=== PATIENT | female | born 1945 | race Caucasian/White ===

== ENCOUNTER 2017-11-03 18:59 | Inpatient (IN) | payer MEDICARE ==
[~2017-11-03] VITALS: Ht 157.5 cm; Wt 58.5 kg
[~2017-11-03 18:59] MED LIST: ASPIR 8181 MG PO; CALCIUM + VITA1 EACH PO; DUONEB 2.5-0.5 M3 ML INH; FERROUS SULFAT325 MG PO; HYDROCHLOROTH12.5 M1 PO; HYDROCHLOROTHIA25 M2 PO; LEVALBUTER1.25 MG/0. INH; LEVAQUIN 500 M500 M2 PO; LEVOTHYROXIN0.088 MG PO; LIPITOR10 MG PO; MAXZIDE-25 MG1 EACH PO; NEXIUM40 MG PO; NORVASC2.5 MG PO; PREDNISONE 10 M10 MG PO; SEREVENT DISKU50 MCG IH; SEREVENT DISKU50 MCG INH; VITAMIN B-12500 MCG PO; XANAX 0.25 MG0.25 MG PO; XARELTO20 MG PO; ZANTAC 150MG T150 MG PO
[2017-11-03 19:05] VITALS: BP 141/63
[2017-11-03 19:46] LABS: ABSOLUTE LYMPHOCYTES 1.2 thou/uL (0.8-5.3); ABSOLUTE MONOCYTES 0.4 thou/uL (0.0-1.2); ABSOLUTE NEUTROPHILS 2.4 thou/uL (1.6-8.1); BASOPHILS 1.1 %; EOSINOPHILS 0.4 %; HEMATOCRIT 38.3 % (37.0-47.0); HEMOGLOBIN 12.9 gm/dL (12.0-15.0); LYMPHOCYTES 28.9 %; MCH 29.6 pg (26.0-34.0); MCHC 33.8 g/dL (28.0-37.0); MCV 87.8 fL (80.0-100.0); MONOCYTES 8.9 %; MPV 10.8 fl. (7.2-11.1); NUCLEATED RBCS 0 /100WBC; PLATELET COUNT* 112 thou/uL (150-400); POLYS 60.7 %; RBC 4.36 mil/uL (4.20-5.00); RDW-CV 13.8 % (10.5-14.5)
[2017-11-03 19:51] LABS: INR 1.2; PROTIME 11.3 Seconds (9.20-11.50)
[2017-11-03 19:59] LABS: BE 2.9 mmol/L (-2 to +3); HCO3 26.4 mmol/L (22.0-26.0); PCO2 36.6 mmHg (35.0-45.0); PO2 111.2 mmHg (75.0-100.0); pH 7.476 (7.340-7.450)
[2017-11-03 20:01] LABS: ALBUMIN 3.3 g/dL (3.4-5.0); ALKALINE PHOSPHATASE 118 U/L (46-116); ANION GAP 8 mmol/L (7-16); BUN 8 mg/dL (7-18); CALCIUM 8.8 mg/dL (8.5-10.1); CHLORIDE 100 mmol/L (98-107); CO2 27 mmol/L (21-32); CREATININE 0.8 mg/dL (0.6-1.3); GLUCOSE 119 mg/dL (70-99); MAGNESIUM 1.7 mg/dL (1.8-2.4); POTASSIUM 4.1 mmol/L (3.5-5.1); SGOT 22 U/L (15-37); SGPT 34 U/L (30-65); SODIUM 135 mmol/L (136-145); TOTAL BILIRUBIN 1.2 mg/dL (<0.1-1.0); TOTAL PROTEIN 6.7 g/dL (6.4-8.2); TROPONIN-I LEVEL <0.06 ng/mL (<0.06)
[2017-11-03 22:40] VITALS: BP 134/86
[2017-11-03 23:00] VITALS: BP 129/68
[2017-11-03 23:37] VITALS: BP 107/44
[2017-11-04 03:54] VITALS: BP 93/45
[2017-11-04 07:30] VITALS: BP 97/52
[2017-11-04 11:33] VITALS: BP 118/53
[2017-11-04 15:56] VITALS: BP 121/52
[2017-11-04 20:00] VITALS: BP 123/61
[2017-11-05] VITALS: BP 127/67
[2017-11-05 04:00] VITALS: BP 138/66
[2017-11-05 07:30] VITALS: BP 136/76
[2017-11-05 11:10] VITALS: BP 127/84
--- NOTE | 2017-11-05 14:40 | EKG ---
[place] [address] ELECTROCARDIOGRAM REPORT Name: PRO DUNHAM Room: [address] IN [facility].#: [id number] Admission: 11/03/17 Attend Phys: Tuan Bingham Discharge: Date of : 47 Report #: [id number] THIS REPORT FOR: //name// [facility] ED Test Date: 2017-11-03 Test Time: 19:41:34 Pat Name: PRO DUNHAM Department: Room: Gender: F Aviation Survival Technician: CWHITLEY : 1945 Requested By: Angeline Zuleta Order Number: [id number] MD: Rico Parada Measurements Intervals [place] Rate: 100 P: 60 [place]: 105 QRS: 82 QRSD: 89 T: 65 QT: 329 QTc: 425 Interpretive Statements Sinus tachycardia Ventricular trigeminy Borderline right axis deviation Compared to ECG 12/16/2016 09:59:04 Ventricular premature complex(es) now present Ectopic atrial tachycardia, multifocal no longer present Myocardial infarct finding no longer present Electronically Signed On 11-05-2017 14:40:14 CDT by Rico Parada [email or web address] <ELECTRONICALLY SIGNED> By: Rico Parada MD, FAC 11/05/17 1440 40 40 Rico Parada MD, FAC /EPI
[2017-11-05 15:33] VITALS: BP 132/93
[2017-11-05 20:00] VITALS: BP 128/61
[2017-11-06 00:42] VITALS: BP 115/67
[2017-11-06 05:13] VITALS: BP 136/67
[2017-11-06 08:22] VITALS: BP 143/84
[2017-11-06 11:18] VITALS: BP 157/66
[2017-11-06] MEDS ORDERED: LEVAQUIN 500 M500 M2 PO (11:44)
[2017-11-06 11:45] VITALS: BP 157/66
--- NOTE | 2017-11-07 16:40 | CON ---
[address] [address] CONSULTATION Name: PRO DUNHAM Room: [address] IN M.R.#: [id number] Admission: 11/03/17 Attend Phys: Tuan Bingham Discharge: 11/06/17 Date of : 47 Report #: [id number] THIS REPORT FOR: //name// CC: Zara Degroot DATE OF SERVICE: 11/06/2017 HISTORY OF PRESENT ILLNESS: The patient is a 72-year-old single white female who I was asked to see in the hospital today after she had a wide complex rhythm. The history is obtained from the patient as well as some old records. She has an extensive past medical history. Apparently when she was born, they noticed a heart murmur. She was told there was a small hole in her heart. She eventually had open heart surgery with open thoracotomy and subsequent repair of the hole when she was 25 years old in [place], [place]. She apparently had a heart catheterization at [facility] in [place], [place] in 1976 and she was told her heart was doing well. She is not very active because of COPD and she does go to pulmonary rehabilitation. Recently, she has been more short of breath. She is given a CPAP but did not get better. She finally was admitted to [facility] on 11/03/2017. She has been treated medically and is now scheduled to go home. However, she had a short run of a wide complex rhythm and Cardiology consultation was requested. Recently, she has been more short of breath, but has had no significant exertional chest heaviness. She denied any palpitation, syncope, edema. PAST MEDICAL HISTORY: Otherwise significant for partial thyroidectomy for benign growth in [place]. She has had C-spine surgery at [facility]. She has had left carotid endarterectomy at [facility]. She has had a hysterectomy. She had surgery on her toe in the past. She has hypertension, hyperlipidemia. No history of diabetes. MEDICATIONS: Consist of Xanax, Nexium, amlodipine, Lipitor, aspirin, DuoNeb, Serevent, ranitidine. She has been on prednisone lately. She has been on Synthroid in the past, hydrochlorothiazide as needed for edema, iron pills. ALLERGIES: SHE HAS AN ALLERGY TO PENICILLIN. FAMILY HISTORY: Negative for heart disease. SOCIAL HISTORY: She has been twice, currently lives with boyfriend in [place]. She quit smoking 10 years ago. No alcohol abuse. REVIEW OF SYSTEMS: She denies a history of a stroke. She does have COPD. No history of peptic ulcer disease, liver disease. She had cervical cancer in the past treated with laser therapy. No chronic skin [place] [address] CONSULTATION Name: PRO DUNHAM Cory Room: [address] IN [facility]#: [id number] Admission: 11/03/17 Attend Phys: Tuan Bingham Discharge: 11/06/17 Date of : 47 Report #: [id number] kidney disease. PHYSICAL EXAMINATION: GENERAL: Revealed an elderly female, in no acute distress. VITAL SIGNS: She had a blood pressure of 130/60, pulse is 90. She is afebrile. HEENT: She was anicteric, conjunctivae pink. Mucous membranes moist. NECK: Veins do not appear distended. No carotid bruits. Neck supple. CHEST: Revealed decreased breath sounds in both lungs. CARDIOVASCULAR: Regular rate and rhythm. No significant murmur. ABDOMEN: Soft. EXTREMITIES: Had no edema. Dorsalis pedis pulse 2+ bilaterally. SKIN: Cool and dry. NEUROLOGIC: Nonfocal. DIAGNOSTIC DATA: ECG shows a sinus rhythm with occasional PVC. Last night, she had a wide complex tachycardia lasting 13 beats up to 180 beats per minute. LABORATORY WORK: Sodium 135, potassium 4.1, creatinine 0.8, magnesium 1.7. Troponin 0.06. Her white blood cell count 4.0, hemoglobin 12.9. Her chest x-ray on admission showed cardiomegaly, hyperinflated lung hearn. She had an echocardiogram in August, which showed an ejection fraction of 50% with apical hypokinesis. IMPRESSION AND RECOMMENDATIONS: 1. Nonsustained ventricular tachycardia, asymptomatic. I will correct electrolytes. The patient does not appear to be a very good candidate for beta natasha because of her chronic obstructive pulmonary disease. 2. Previous apical ballooning syndrome. Last ejection fraction noted to be normal. 3. Chronic obstructive pulmonary disease. 4. Previous repair of an intracardiac shunt. Echo shows no significant residual shunt. 5. Previous carotid endarterectomy, the patient on aspirin. 6. Hyperlipidemia. The patient is on a statin drug. 7. Hypertension. The patient has been on a calcium natasha. 8. Previous carotid endarterectomy. The patient followed at [facility]. <ELECTRONICALLY SIGNED> By: Alvaro Hooks MD, [facility] 11/07/17 1640 1102 1819Alvaro Hooks MD, FACC /nt
== END 2017-11-06 13:40 | disposition home or self-care (01) | DRG 871 ==
LOC: M.ERS 18:59 → M.2W 20:55 → M.TBA-ER 20:55 → M.2W 21:26
PROVIDERS: Personal Emergency Response Attendant; ADMIT Internal Medicine
DX: A41.9 Sepsis, unspecified organism (principal); J96.02 Acute respiratory failure with hypercapnia; J44.1 Chronic obstructive pulmonary disease with (acute) exacerbation; I47.2 Ventricular tachycardia; I11.0 Hypertensive heart disease with heart failure; E78.00 Pure hypercholesterolemia, unspecified; E89.0 Postprocedural hypothyroidism; E11.9 Type 2 diabetes mellitus without complications; I50.9 Heart failure, unspecified; Z95.5 Presence of coronary angioplasty implant and graft; Z79.82 Long term (current) use of aspirin; Z79.899 Other long term (current) drug therapy; Z90.710 Acquired absence of both cervix and uterus; Z87.891 Personal history of nicotine dependence; Z88.0 Allergy status to penicillin

== ENCOUNTER 2018-05-13 20:47 | Inpatient (IN) | payer MEDICARE ==
[~2018-05-13] VITALS: Ht 157.5 cm; Wt 58.5 kg
[2018-05-13 20:53] VITALS: BP 150/66
[2018-05-13] MEDS ORDERED: SYNTHROID100 MC1 PO (21:03)
[2018-05-13] MEDS ORDERED: MUCINEX600 MG PO (21:08)
[2018-05-13] MEDS ORDERED: TESSALON PERLE100 MG PO (21:08)
[2018-05-13] MEDS ORDERED: DOXYCYCLINE 10100 MG PO (21:09)
[2018-05-13 21:17] LABS: ABSOLUTE BASOPHILS 0.1 thou/uL (0.0-0.2); ABSOLUTE EOSINOPHILS 0.1 thou/uL (0.0-0.7); ABSOLUTE LYMPHOCYTES 1.4 thou/uL (0.8-5.3); ABSOLUTE MONOCYTES 0.6 thou/uL (0.0-1.2); ABSOLUTE NEUTROPHILS 5.5 thou/uL (1.6-8.1); BASOPHILS 1.1 %; EOSINOPHILS 1.2 %; HEMATOCRIT 42.5 % (37.0-47.0); HEMOGLOBIN 14.3 gm/dL (12.0-15.0); LYMPHOCYTES 18.1 %; MCH 30.6 pg (26.0-34.0); MCHC 33.6 g/dL (28.0-37.0); MCV 91.2 fL (80.0-100.0); MONOCYTES 8.1 %; MPV 9.1 fl. (7.2-11.1); NUCLEATED RBCS 0 /100WBC; PLATELET COUNT* 126 thou/uL (150-400); POLYS 71.5 %; RBC 4.66 mil/uL (4.20-5.00); RDW-CV 16.1 % (10.5-14.5); WBC 7.7 thou/uL (4.0-11.0)
[2018-05-13 21:25] LABS: ANION GAP 7 mmol/L (7-16); BUN 13 mg/dL (7-18); CALCIUM 8.9 mg/dL (8.5-10.1); CHLORIDE 104 mmol/L (98-107); CO2 29 mmol/L (21-32); CREATININE 1.3 mg/dL (0.6-1.3); GLUCOSE 115 mg/dL (70-99); POTASSIUM 4.1 mmol/L (3.5-5.1); SODIUM 140 mmol/L (136-145)
[2018-05-13 21:34] LABS: BE -1.7 mmol/L (-2 to +3); HCO3 22.5 mmol/L (22.0-26.0); PCO2 36.6 mmHg (35.0-45.0); PO2 92.5 mmHg (75.0-100.0); pH 7.407 (7.340-7.450)
[2018-05-13 21:39] LABS: ALBUMIN 3.6 g/dL (3.4-5.0); ALKALINE PHOSPHATASE 107 U/L (46-116); LIPASE 141 U/L (73-393); NT-PRO BRAIN NAT PEPTIDE 266 pg/mL (<300); SGOT 26 U/L (15-37); SGPT 49 U/L (30-65); TOTAL PROTEIN 6.8 g/dL (6.4-8.2); TROPONIN-I LEVEL <0.06 ng/mL (<0.06)
[2018-05-13 23:26] VITALS: BP 129/66
[2018-05-14 05:55] LABS: INFLUENZA A ANTIGEN None Detected (None Detect); INFLUENZA B ANTIGEN None Detected (None Detect)
--- NOTE | 2018-05-14 06:48 | NUR ---
PATIENT SLEPT WELL DURING THIS SHIFT. PT UP WITH STEADY GAIT TO BATHROOM. PT HAS PATENT SALINE LOCK IN LT FOREARM. PT ON O2 @ 2 LITERS PER NASAL CANNULA. PT DENIES PAIN AT THIS TIME. FREQUENTLY USED ITEMS AND CALL LIGHT WITHIN REACH. SIDERAILS UPX2. WILL CONTINUE TO MONITOR.
[2018-05-14 07:30] VITALS: BP 129/62
--- NOTE | 2018-05-14 10:10 | NUR ---
SW met with pt and pt significant other to complete initial assessment, introduce self, and SW role. Pt lives at home with significant other. Pt has oxygen at home, rw, scooter, stair lift, grab bars, ramps. Pt has supportive family. Pt has [facility] and h[facility]. Pt currently going to [facility] pulmonary rehab twice a week. Pt does not anticipate any dc needs at this time. SW to continue to follow to assist with safe dc planning.
[2018-05-14 11:40] VITALS: BP 152/69
[2018-05-14] MEDS ORDERED: CENTRUM SILVER1 EAC2 PO (11:54)
[2018-05-14 16:00] VITALS: BP 107/41
--- NOTE | 2018-05-14 16:28 | EKG ---
[place] [address] ELECTROCARDIOGRAM REPORT Name: PRO DUNHAM Room: [address] ADM IN M.R.#: [id number] Admission: 05/13/18 Attend Phys: Nelly Armendariz MD Discharge: Date of : 47 Report #: [id number] THIS REPORT FOR: //name// [facility] ED Test Date: 2018-05-13 Test Time: 21:35:12 Pat Name: PRO DUNHAM Department: Room: [facility] Gender: F Tester Vibrator Equipment: [facility] : 1945 Requested By: Doyle Levi Order Number: [id number] MD: Anuj Delgado Measurements Intervals [place] Rate: 91 P: 95 OR: 121 QRS: 78 QRSD: 90 T: 68 QT: 357 QTc: 440 Interpretive Statements Sinus rhythm Consider left atrial enlargement Borderline repolarization abnormality Compared to ECG 11/03/2017 19:41:34 Sinus tachycardia no longer present Ventricular premature complex(es) no longer present Electronically Signed On 05-14-2018 16:28:18 PLUMBING HARDWARE ASSEMBLER by Anuj Delgado [email or web address] <ELECTRONICALLY SIGNED> By: Anuj Delgado MD, [facility] 05/14/18 1628 2135 2135 Anuj Delgado MD, [facility] /EPI
--- NOTE | 2018-05-14 16:28 | NUR ---
PATIENT UP AD NEFTALY, STEADY GAIT NOTED. PATIENT REMAINS ON 2L NC, 02 SAT 93-94% RA. HOME MEDICATIONS REORDER THIS AM AND GIVEN. GOOD APPETITE. STORE MANAGEMENT TRAINEE REMAINS IN PLACE. NO COMPLAINTS OF PAIN. PULMONARY CONS PLACED AND DR. ELIZABETH SAW PATIENT THIS AM.
[2018-05-14 20:00] VITALS: BP 105/62
--- NOTE | 2018-05-14 21:54 | NUR ---
INITAL ASSESMENT COMPLETED AT 1915. PT RESTING QUIETLY IN BED WATCHING TELEVISION. PT'S O2 SAT 95% ON LITER OXYGEN. PT HAS OCCASIONAL LOOSE NON PRODUCTIVE COUGH. MUCINEX GIVEN WITH HS MEDS. CALL LIGHT IN REACH. PT USING APPROPRIATELY.
[2018-05-15] VITALS: BP 136/67
[2018-05-15 03:54] VITALS: BP 106/60
[2018-05-15 07:40] VITALS: BP 126/44
--- NOTE | 2018-05-15 11:22 | CON ---
[address] [address] CONSULTATION Name: PRO DUNHAM Room: [address] IN M.R.#: [id number] Admission: 05/13/18 Attend Phys: Nelly Armendariz MD Discharge: Date of : 47 Report #: [id number] THIS REPORT FOR: //name// CC: Nelly Lentz REASON FOR CONSULTATION: Respiratory failure and COPD exacerbation. HISTORY OF PRESENT ILLNESS: This is a 73-year-old female patient with history of COPD. She is on oxygen at home p.r.n. during sleep. She told me she uses 1 liter of oxygen during the daytime. She presented to the hospital with increasing shortness of breath of few weeks' duration. She told me back in April, she was treated with antibiotic and steroids by Dr. Lentz with a slight improvement in her symptoms. She has a repeat course of antibiotic also again in the first few days of May when she started having increased nasal discharge and runny nose in addition to sore throat. She had been around kids around the holidays, although nobody had active symptoms of cold, but the family thought she might have been exposed to somebody with cold symptoms. She has cough, rhinorrhea and sore throat. She had no fever, no chills. She noticed that her wheezing had been getting worse over the course of few days and she started having more wheezes. She had a history of smoking, quit around 12 years ago. She had a history of PE back in 2014 after a surgery in her neck and at that time, she was treated with anticoagulation. She has no chest pain at this point. She has no headache or blurring of vision. Actually, it was noted that she was intubated at this facility back in 2017 for respiratory failure. PAST MEDICAL HISTORY: COPD, severe; history of cervical spondylosis, cervical spine surgery, gastroesophageal reflux disease, hypothyroidism, diverticular disease, anxiety, artery disease, Connolly's esophagus, erosive gastropathy, osteopenia, repair of atrioseptal defect in 1971, hysterectomy, cervical cancer surgery, nasal reconstruction and vocal cord scraping, hammertoe surgery. PAST SURGICAL HISTORY: As above. SOCIAL HISTORY: Former smoker, quit smoking back in 2008. She has a 67-[id number]-[id number] history of smoking. FAMILY HISTORY: Positive for kidney disease and Alzheimer disease. REVIEW OF SYSTEMS: Twelve-point review of system was reviewed with the patient and negative other than as mentioned above. PHYSICAL EXAMINATION: VITAL SIGNS: She is on 2 liter oxygen. Blood pressure 150/69, breathing [address] [place] [address] CONSULTATION Name: PRO DUNHAM Room: [address] IN M.R.#: [id number] Admission: 05/13/18 Attend Phys: Nelly Armendariz MD Discharge: Date of : 47 Report #: [id number] times a minute, pulse rate of 95, temperature 36.7. HEENT: Head: Normocephalic, atraumatic. Pupils are reactive to light. Oral cavity, moist mucous membranes. Mallampati of 2. External ears look healthy and normal. Nasal cavity, patent passages. GENERAL: Speaks in full sentences, no distress. NECK: Full range of movement. CHEST: Diminished air movement bilateral. Prolonged expiratory phase with wheezes, some rhonchi at the bases. HEART: S1, S2, no murmur. ABDOMEN: Benign, soft, lax, nontender, positive bowel sounds. No masses felt. EXTREMITIES: Lower extremity: No edema, no calf tenderness. NEUROLOGIC: Moving all 4 extremities spontaneously. No focal weakness. Cranial nerves grossly normal. LABORATORY DATA: White blood count 7.7, hemoglobin 14.3, platelets of 126. AB.40/36/92 and this was done on 2 L oxygen. Her creatinine is 1.3, potassium 4.1. BNP not elevated. Her influenza A and B screen negative. Her chest x-ray did not show acute infiltrate. IMPRESSION: 1. Emleo-gg-vzzeexa respiratory failure. 2. Chronic obstructive pulmonary disease exacerbation. 3. Respiratory virus illness. PLAN: At this point, the patient will be on steroids IV, schedule nebulization treatment. Continue mucolytics. She is on levofloxacin, which I would continue. She needs to schedule a bronchodilator therapy, which we will continue that. I did discuss with the patient. I suspect the viral illness is what triggered her symptoms. Continue current therapy. She asked me if she can switch her outpatient inhalers. I did recommend for her to follow with Dr. Mahmood 's office after the discharge. We will continue to follow along with you. Discussed with the patient and her family at the bedside. Thank you for the consult. <ELECTRONICALLY SIGNED> By: Anusha Fuentes MD 05/15/18 1122 1204 [id number] Fuentes MD /nt
[2018-05-15 12:00] VITALS: BP 109/64
[2018-05-15 15:58] VITALS: BP 126/59
--- NOTE | 2018-05-15 16:07 | NUR ---
PATIENT REMAINS ON 1L NC, NO SOA NOTED. PRN TESSALON PEARLS GIVEN FOR COUGH, NO SPUTUM NOTED. IV SL, SCHED STEROIDS REMAIN. UP AD NEFTALY, STEADY GAIT NOTED. PATIENT UP TO SHOWER THIS AM. DR. ELIZABETH FROM PULMONARY ROUNDED ON PATIENT TODAY, POSSIBLE DISCHARGE TOMORROW.
[2018-05-15 19:30] VITALS: BP 140/72
[2018-05-16] VITALS: BP 117/51
--- NOTE | 2018-05-16 01:26 | NUR ---
RECIEVED REPORT AND ASSUMED CARE AT 1900. BULL BUCKER IN PLACE. PULSE TACHY, RESP HIGH, OTHER THAN THAT VITAL SIGNS STABLE. PT UP ADLIB. ASSESSMENT COMPLETE, DISCUSSED PLAN OF CARE, PT UNDERSTANDS. PT HAS SORE THROAT, RIGHT EAR PAIN, AND REFUSED TO TAKE PRN MEDS FOR PAIN. SHE IS SWISHING WARM SALT WATER AND MOUTH WASH TO HELP WITH SORE THROAT. BED LOCKED AND CALL LIGHT WITHIN REACH. FALL PRECAUTIONS IN PLACE. HOURLY ROUNDING COMPLETED AND ALL NEEDS MET. NURSING WILL CONTINUE TO MONITOR.
[2018-05-16 04:00] VITALS: BP 101/52
[2018-05-16 08:00] VITALS: BP 147/58
[2018-05-16 11:53] VITALS: BP 144/91
--- NOTE | 2018-05-16 16:24 | NUR ---
NO COMPLAINTS OF PAIN OR SOA THIS SHIFT. IV REMAINS SL, SCHED STEROIDS REMAIN. REMAINS ON 1L. PATIENT AMBULATED IN HALLS WITH ASSISTANCE. GOOD APPETITE.
[2018-05-16 17:08] VITALS: BP 141/54
[2018-05-17] VITALS: BP 127/61
[2018-05-17 03:44] VITALS: BP 133/61
[2018-05-17 04:19] LABS: HEMATOCRIT 38.9 % (37.0-47.0); HEMOGLOBIN 13.1 gm/dL (12.0-15.0); MCH 30.7 pg (26.0-34.0); MCHC 33.7 g/dL (28.0-37.0); MCV 91.3 fL (80.0-100.0); MPV 9.7 fl. (7.2-11.1); RBC 4.26 mil/uL (4.20-5.00); RDW-CV 15.8 % (10.5-14.5); WBC 8.9 thou/uL (4.0-11.0)
[2018-05-17 04:40] LABS: POTASSIUM 4.5 mmol/L (3.5-5.1)
--- NOTE | 2018-05-17 04:44 | NUR ---
PATIENT SLEPT WELL DURING THIS SHIFT. PT UP TO BATHROOM WITH SLOW STEADY GAIT TO VOID. PT ON O2 @ 1 LITER PER NASAL CANNULA. PT WITH SALINE LOCK IN RT WRIST; ANTIBIOTICS INFUSING PER DR ORDER. PT SR ON APPLICATION SECURITY SPECIALIST. PT DENIES NEEDS AT THIS TIME. FREQUENTLY USED ITEMS AND CALL LIGHT WITHIN REACH. SIDERAILS UPX2. WILL CONTINUE TO MONITOR.
[2018-05-17 09:56] VITALS: BP 149/76
[2018-05-17 12:00] VITALS: BP 135/63
[2018-05-17 16:00] VITALS: BP 128/69
--- NOTE | 2018-05-17 17:44 | NUR ---
PATIENT HAS BEEN ALERT AND ORIENTED TODAY VERY PLEASANT. VITAL SIGNS STABLE ON 1 LITER OF OXYGEN. NO REPORTS OF PAIN TODAY. STARTED INSULIN TODAY DUE TO STEROIDS RAISING BLOOD SUGAR. PATIENT HAS BEEN USING FLUTTER AND HAS BEEN AMBULATING IN THE HALLWAYS WITH OXYGEN TODAY. HAS BEEN AT BEDSIDE TODAY, CALL LIGHT IS IN REACH, WILL CONTINUE TO MONITOR.
[2018-05-18 00:11] VITALS: BP 117/56
[2018-05-18 02:07] LABS: GLYCOHEMOGLOBIN (HGB A1C) 5.5 % (4.8-5.6)
[2018-05-18 03:36] VITALS: BP 129/55
[2018-05-18 08:00] VITALS: BP 135/71
[2018-05-18 17:15] VITALS: BP 128/73
--- NOTE | 2018-05-18 17:58 | NUR ---
PATIENT IS ALERT AND ORIENTED TODAY, VERY PLEASANT UP AD NEFTALY IN ROOM AND AMBULATING IN HALLWAYS. VITAL SIGNS STABLE ON 1 LITER OF OXYGEN. APPETITE IS GOOD, BLOOD SUGAR HAS BEEN SLIGHTLY ELEVATED. CALL LIGHT IS IN REACH, WILL CONTINUE TO MONITOR,
[2018-05-18 19:30] VITALS: BP 129/68
--- NOTE | 2018-05-19 05:25 | NUR ---
PATIENT SLEEPING. PATIENT HAS SLEPT MOST OF NIGHT. PATIENT DENIES ANY PAIN. BREATHING TREATMENT GIVEN DOCUMENTED. PATIENT DENIES ANY INCREASE IN SHORTNESS OF BREATH. PATIENT IS UP AD NEFTALY IN ROOM. CALL LIGHT WITHIN REACH. WILL CONTINUE TO MONITOR.
[2018-05-19 07:50] VITALS: BP 137/71
[2018-05-19] MEDS ORDERED: LEVAQUIN 500 M500 M2 PO (09:29)
[2018-05-19] MEDS ORDERED: PREDNISONE 10 M10 MG PO (09:29)
[2018-05-19] MEDS ORDERED: HYDROCODON-ACE1 EAC7 PO (09:29)
[2018-05-19 11:37] VITALS: BP 137/71
--- NOTE | 2018-05-19 11:44 | NUR ---
PRESCRIPTIONS OF PREDNISONE AND LEVAQUIN CALLED INTO PATIENT'S PHARMACY AT [facility] IN [place] PER REQUEST. CASE MANAGMENT NOTIFIED OF PATIENT NEEDING HOME HEALTH RESUMED FOR DISCHARGE.
[2018-05-19 11:57] VITALS: BP 163/67
--- NOTE | 2018-05-19 12:46 | NUR ---
PT.TO DISCHARGE TODAY WITH HOME HEALTH NURSING AND P.T. SHE HAD USED [facility] IN THE PAST AND WANTED TO USE THEM AGAIN. LEFT VM ON [facility] ANSWERING MACHINE [phone] AND FAXED FACE SHEET,DISCHARGE SUMMARY AND MED LIST TO [phone]. INFORMATION PUT ON DISCHARGE INSTRUCTION FORMS.
--- NOTE | 2018-05-19 13:46 | NUR ---
PATIENT GIVEN DISCHARGE INSTRUCTIONS AND PRESCRIPTION FOR HYDROCODONE. IV AND SALES VENDOR REMOVED. PATIENT VERBALIZED UNDERSTANDING IN REGARDS TO FOLLOW UP APPOINMENTS, NEW MEDICATIONS AND S/S TO CALL PHYSICIAN. PATIENT ESCORTED TO MAIN ENTRANCE WITH NURSING STAFF AND DISCHARGED WITH [facility] HOME [facility].
== END 2018-05-19 13:47 | disposition home health service (06) | DRG 871 ==
LOC: M.ERS 20:47 → M.TBA-ER 21:48 → M.3W 21:48
PROVIDERS: Emergency Medicine; Internal Medicine; ADMIT Internal Medicine
DX: A41.9 Sepsis, unspecified organism (principal); J96.21 Acute and chronic respiratory failure with hypoxia; J44.1 Chronic obstructive pulmonary disease with (acute) exacerbation; E44.0 Moderate protein-calorie malnutrition; E78.00 Pure hypercholesterolemia, unspecified; J45.909 Unspecified asthma, uncomplicated; K21.9 Gastro-esophageal reflux disease without esophagitis; E03.9 Hypothyroidism, unspecified; F41.9 Anxiety disorder, unspecified; E11.65 Type 2 diabetes mellitus with hyperglycemia; Z88.0 Allergy status to penicillin; Z87.891 Personal history of nicotine dependence; Z90.710 Acquired absence of both cervix and uterus; Z68.23 Body mass index [BMI] 23.0-23.9, adult; Z79.899 Other long term (current) drug therapy

== ENCOUNTER → 2019-03-04 | Outpatient (CLI) | payer MEDICARE ==
[~2019-03-04] MED LIST changes: +CENTRUM SILVER1 EAC2 PO; +DOXYCYCLINE 10100 MG PO; +HYDROCODON-ACE1 EAC7 PO; +MUCINEX600 MG PO; +SYNTHROID100 MC1 PO; +TESSALON PERLE100 MG PO
== END ==
LOC: M.ULTRA 08:19
DX: I25.10 Atherosclerotic heart disease of native coronary artery without angina pectoris (principal)

== ENCOUNTER → 2019-11-12 | Outpatient (CLI) | payer MEDICARE | LOC: M.LAB 11-11 11:00 → M.CT 11:30 | PROVIDERS: ATTEND Family Medicine | DX: I70.0 Atherosclerosis of aorta (principal); I77.811 Abdominal aortic ectasia; I25.10 Atherosclerotic heart disease of native coronary artery without angina pectoris; J43.9 Emphysema, unspecified; D71 Functional disorders of polymorphonuclear neutrophils ==

== ENCOUNTER → 2020-05-19 | Outpatient (CLI) | payer MEDICARE | LOC: M.CT 07:47 | PROVIDERS: ATTEND Internal Medicine Pulmonary Disease | DX: J43.9 Emphysema, unspecified (principal); I25.10 Atherosclerotic heart disease of native coronary artery without angina pectoris; R91.8 Other nonspecific abnormal finding of lung field; I77.810 Thoracic aortic ectasia; J84.10 Pulmonary fibrosis, unspecified ==